=== PATIENT | male | born 2000 | race Two or more races ===

== ENCOUNTER 2019-11-11 14:12 | Emergency (ER) | payer MEDICAID ==
[~2019-11-11] VITALS: Ht 182.9 cm; Wt 70.0 kg
[2019-11-11] MEDS ORDERED: KETOROLAC 30MG/ML VIAL IV STA (15:21)
[2019-11-11] MEDS ORDERED: SODIUM CHLORIDE 0.9% 1,000 ML IV ONE (15:21)
[2019-11-11 15:56] LABS: BASOPHILS % 0.4 % (0.0-2.0); EOSINOPHILS % 1.8 % (0.0-5.0); HEMATOCRIT. 43.2 % (42.0-52.0); HEMOGLOBIN. 14.8 g/dL (14.0-18.0); LYMPHOCYTES % 25.3 % (20.0-50.0); MEAN CORPUSCULAR HEMOGLOBIN 28.5 pg (28.0-32.0); MEAN CORPUSCULAR VOLUME 83.1 fL (80.0-94.0); MONOCYTES % 6.3 % (2.0-8.0); NEUTROPHILS % 66.2 % (40.0-76.0); PLATELET 213 x1000/uL (130-400)
[2019-11-11 16:01] LABS: CHLORIDE 104 mEq/L (98-107)
[2019-11-11 16:05] LABS: ETHANOL BLOOD < 10 mg/dL
[2019-11-11 17:15] LABS: *AMPHETAMINES SCREEN URINE NEGATIVE (NEGATIVE); *BARBITURATES SCREEN URINE NEGATIVE (NEGATIVE); *BENZODIAZEPINES SCREEN URINE NEGATIVE (NEGATIVE); *COCAINE SCREEN URINE NEGATIVE (NEGATIVE)
[2019-11-11 17:16] LABS: CANNABINOID URINE SCREEN NEGATIVE (NEGATIVE); METHADONE URINE SCREEN NEGATIVE (NEGATIVE); OPIATES URINE SCREEN NEGATIVE (NEGATIVE); PHENCYCLIDINE URINE SCREEN NEGATIVE (NEGATIVE)
[2019-11-11 19:04] VITALS: BP 115/71
== END 2019-11-11 19:06 | disposition home or self-care (01) ==
LOC: ER 14:12
DX: R00.2 Palpitations (principal); R07.89 Other chest pain; F43.0 Acute stress reaction; R06.4 Hyperventilation; R03.0 Elevated blood-pressure reading, without diagnosis of hypertension
CPT/HCPCS: 36415; 71045; 80053; 80305; 80320; 83690; 83880; 84484; 85025; 93005; 96361; 96374; 99285; J1885; J7030; G0480

== ENCOUNTER 2024-05-31 00:07 | Emergency (ER) | payer MEDICAID ==
[~2024-05-31] VITALS: Ht 167.6 cm; Wt 74.8 kg
[2024-05-31 00:29] VITALS: O2SAT 98
[2024-05-31] MEDS ORDERED: LIDO700A15 TP (02:04)
[2024-05-31] MEDS ORDERED: NAPR-1176 MT (02:04)
[2024-05-31 02:45] VITALS: TEMP 36.83628; O2SAT 98
[2024-05-31] MEDS: KETOROLAC 15MG/ML VIAL IM ONE (02:56)
[2024-05-31 03:00] VITALS: BP 130/68; PULSE 68; RESP 16
[2024-05-31] MEDS: KETOROLAC 15MG/ML VIAL IM NR (03:00)
== END 2024-05-31 03:15 | disposition home or self-care (01) ==
LOC: ER 00:16
DX: S06.9XAA Unspecified intracranial injury with loss of consciousness status unknown, initial encounter (principal); M25.562 Pain in left knee; W22.8XXA Striking against or struck by other objects, initial encounter; Y93.89 Activity, other specified; Y92.89 Other specified places as the place of occurrence of the external cause; Y99.8 Other external cause status
CPT/HCPCS: 99284; 73562; 96372; J1885